=== PATIENT | female | born 1990 | race Caucasian/White ===

== ENCOUNTER 2016-07-24 22:05 | Emergency (ER) | payer OTHER ==
[~2016-07-24] VITALS: Ht 157.5 cm; Wt 84.4 kg
[~2016-07-24 22:05] MED LIST: HYDR-2678 PO; PREN-6 PO
[2016-07-24 22:22] VITALS: BP 150/102
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
[2016-07-24] MEDS ORDERED: HYDROcodone/APAP 5/325MG 1 TAB TABLET PO ONE (22:30)
[2016-07-24] MEDS ORDERED: HYDR-2666 PO (23:24)
[2016-07-24] MEDS ORDERED: NAPR500T PO (23:24)
--- NOTE | 2016-07-25 07:29 | RAD ---
Portable right knee, 3 views, 07/24/2016: History: Fall, pain No acute fracture or dislocation is identified. There is a suggestion of a moderate-sized joint effusion. IMPRESSION: 1. Probable joint effusion. 2. No acute bony abnormality is detected.
== END 2016-07-24 23:38 | disposition home or self-care (01) ==
LOC: ER 22:05
DX: S83.421A Sprain of lateral collateral ligament of right knee, initial encounter (principal); F17.200 Nicotine dependence, unspecified, uncomplicated; Z86.14 Personal history of Methicillin resistant Staphylococcus aureus infection; X58.XXXA Exposure to other specified factors, initial encounter; Y93.02 Activity, running; Y92.410 Unspecified street and highway as the place of occurrence of the external cause; Y99.8 Other external cause status
CPT/HCPCS: 29505; 73562; 99284-25

== ENCOUNTER 2016-11-16 17:29 | Emergency (ER) | payer SELFPAY ==
[~2016-11-16] VITALS: Ht 157.5 cm; Wt 69.4 kg
[~2016-11-16 17:29] MED LIST changes: +HYDR-2758 PO; +NAPR500T PO; +PRED20TA PO; +PROVENTIL HFA6.7 GM IH; +SULF1TAB24 PO
[2016-11-16 17:38] VITALS: BP 147/83
[2016-11-16] MEDS ORDERED: IPRATRPIUM/ALBUTEROL 0.5/2.5MG 3 ML NEBU. NEB ONE (17:45)
[2016-11-16] MEDS ORDERED: PRED20TA PO (18:37)
[2016-11-16] MEDS ORDERED: AZIT250T PO (18:37)
[2016-11-16] MEDS ORDERED: PROAIR HFA8.5 GM INH (18:37)
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
== END 2016-11-16 18:43 | disposition home or self-care (01) ==
LOC: ER 17:29
DX: J40 Bronchitis, not specified as acute or chronic (principal)
CPT/HCPCS: 94250; 94640; 99283; J7620

== ENCOUNTER 2016-12-02 04:58 | Emergency (ER) | payer SELFPAY ==
[~2016-12-02] VITALS: Ht 162.6 cm; Wt 69.4 kg
[~2016-12-02 04:58] MED LIST changes: +AZIT250T PO; +PROAIR HFA8.5 GM INH
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
[2016-12-02 05:56] LABS: BASO # 0.1 x10^3/uL (0.0-0.2); BASO % 1 % (0-3); EOS % 0 % (0-3); HEMATOCRIT 38.8 % (36.0-47.0); HEMOGLOBIN 13.1 g/dL (12.0-15.5); LYMPH # 2.1 x10^3/uL (1.0-4.8); LYMPH % 22 % (24-48); MEAN CORPUSCULAR HEMOGLOBIN 28 pg (25-35); MEAN CORPUSCULAR HGB CONC 34 g/dL (31-37); MEAN CORPUSCULAR VOLUME 81 fL (79-100); MONO % 6 % (0-9); NEUT % 71 % (31-73); PLATELET COUNT 274 x10^3/uL (140-400); RED BLOOD COUNT 4.77 x10^6/uL (3.50-5.40); RED CELL DISTRIBUTION WIDTH 16.1 % (11.5-14.5); WHITE BLOOD COUNT 9.4 x10^3/uL (4.0-11.0)
[2016-12-02 06:00] LABS: BILIRUBIN,URINE NEGATIVE (NEG); GLUCOSE,URINE NEGATIVE (NEG); NITRITE,URINE NEGATIVE (NEG); PH,URINE 5.5; PROTEIN,URINE NEGATIVE (NEG-TRACE); UROBILINOGEN,URINE 0.2 mg/dL (0.2 mg/dL)
[2016-12-02] MEDS ORDERED: IV NORMAL SALINE 1000ML BAG 1,000 ML IV ONE (06:00)
[2016-12-02 06:15] LABS: BACTERIA,URINE 0 /HPF (0-FEW); RBC,URINE 0 /HPF (0-2); SQUAMOUS EPITHELIAL CELL,UR FEW /LPF; WBC,URINE 0 /HPF (0-4)
[2016-12-02] MEDS ORDERED: CONTRAST GIVEN MC PRN (06:15)
[2016-12-02 06:28] LABS: CALCIUM 8.2 mg/dL (8.5-10.1); POTASSIUM 3.8 mmol/L (3.5-5.1)
[2016-12-02 06:29] LABS: ALBUMIN 3.6 g/dL (3.4-5.0); TOTAL BILIRUBIN 0.3 mg/dL (0.2-1.0); TOTAL PROTEIN 7.3 g/dL (6.4-8.2)
[2016-12-02] MEDS ORDERED: IOHEXOL 300 MG/ML 75 ML VIAL IV ONE (06:30)
--- NOTE | 2016-12-02 07:25 | RAD ---
CT of the abdomen and pelvis with contrast, 12/02/2016: History: Left-sided pain Multidetector CT imaging was performed following an IV bolus injection of iodinated contrast material. No oral contrast material was administered for this study. There is mild streaky atelectasis in the lung bases. No hepatic abnormality is seen. The gallbladder is unremarkable. No pancreatic abnormality is detected. The spleen is of normal size. The kidneys show no evidence of obstruction or mass. There is an 18 mm cyst in the right ovary. No abdominal or pelvic adenopathy is seen. The bowel loops are not dilated. A portion of the appendix is visualized and it shows no abnormality. No free air or significant free fluid is evident in the abdomen or pelvis. IMPRESSION: No acute abdominal or pelvic abnormality is detected. PQRS Compliance Statement: One or more of the following individualized dose reduction techniques were utilized for this examination: 1. Automated exposure control 2. Adjustment of the mA and/or kV according to patient size 3. Use of iterative reconstruction technique
[2016-12-02 07:52] VITALS: BP 104/48
== END 2016-12-02 09:08 | disposition home or self-care (01) ==
LOC: ER 04:58
DX: S05.12XA Contusion of eyeball and orbital tissues, left eye, initial encounter (principal); S00.11XA Contusion of right eyelid and periocular area, initial encounter; S10.91XA Abrasion of unspecified part of neck, initial encounter; S09.90XA Unspecified injury of head, initial encounter; R10.31 Right lower quadrant pain; Y04.0XXA Assault by unarmed brawl or fight, initial encounter; Y93.89 Activity, other specified; Y92.89 Other specified places as the place of occurrence of the external cause; Y99.8 Other external cause status
CPT/HCPCS: 36415; 74177; 80053; 81001; 81025; 83690; 85025; 96360; 99285; J7030; Q9967

== ENCOUNTER 2017-04-06 20:02 | Emergency (ER) | payer SELFPAY ==
[2017-04-06] MEDS: IPRATRPIUM/ALBUTEROL 0.5/2.5MG 3 ML NEBU. NEB ×2 (20:45)
[2017-04-06] MEDS: IOHEXOL 300 MG/ML 100ML VIAL. IV ×2 (20:45)
[2017-04-06 20:49] LABS: ADD MAN DIFF? NO
[2017-04-06 20:52] LABS: URINE HCG POC HCG NEGATIVE (Negative)
[2017-04-06 20:52] LABS: BASO # 0.1 x10^3/uL (0.0-0.2); BASO % 1 % (0-3); EOS # 0.2 x10^3/uL (0.0-0.7); EOS % 2 % (0-3); HEMATOCRIT 37.9 % (36.0-47.0); HEMOGLOBIN 13.1 g/dL (12.0-15.5); LYMPH # 2.5 x10^3/uL (1.0-4.8); LYMPH % 30 % (24-48); MEAN CORPUSCULAR HEMOGLOBIN 29 pg (25-35); MEAN CORPUSCULAR HGB CONC 35 g/dL (31-37); MEAN CORPUSCULAR VOLUME 83 fL (79-100); MONO # 0.8 x10^3/uL (0.0-1.1); MONO % 9 % (0-9); NEUT # 4.8 x10^3uL (1.8-7.7); NEUT % 58 % (31-73); PLATELET COUNT 264 x10^3/uL (140-400); RED BLOOD COUNT 4.56 x10^6/uL (3.50-5.40); RED CELL DISTRIBUTION WIDTH 15.3 % (11.5-14.5); WHITE BLOOD COUNT 8.3 x10^3/uL (4.0-11.0)
[2017-04-06] MEDS ORDERED: CONTRAST GIVEN MC ×2 (21:00)
[2017-04-06 21:03] LABS: ANION GAP 10 (6-14); BLOOD UREA NITROGEN 9 mg/dL (7-20); BUN/CREATININE RATIO 10 (6-20); CALCIUM 8.3 mg/dL (8.5-10.1); CARBON DIOXIDE 25 mmol/L (21-32); CHLORIDE 105 mmol/L (98-107); CREATININE 0.9 mg/dL (0.6-1.0); GFR 75.1; GLUCOSE 103 mg/dL (70-99); POTASSIUM 3.9 mmol/L (3.5-5.1); SODIUM 140 mmol/L (136-145)
[2017-04-06] MEDS: MORPHINE SULFATE 10 MG/ML VIAL. IV ×2 (21:05)
[2017-04-06 21:11] LABS: ALBUMIN 3.3 g/dL (3.4-5.0); ALBUMIN/GLOBULIN RATIO 0.8 (1.0-1.7); ALK PHOS 67 U/L (46-116); ALT (SGPT) 19 U/L (14-59); AST (SGOT) 12 U/L (15-37); TOTAL BILIRUBIN 0.7 mg/dL (0.2-1.0); TOTAL PROTEIN 7.2 g/dL (6.4-8.2)
== END 2017-04-06 22:54 | disposition home or self-care (01) ==
LOC: ER 20:02
DX: S16.1XXA Strain of muscle, fascia and tendon at neck level, initial encounter (principal); J06.9 Acute upper respiratory infection, unspecified; R06.2 Wheezing; F17.200 Nicotine dependence, unspecified, uncomplicated; V89.2XXA Person injured in unspecified motor-vehicle accident, traffic, initial encounter; W22.12XA Striking against or struck by front passenger side automobile airbag, initial encounter; Y93.89 Activity, other specified; Y92.89 Other specified places as the place of occurrence of the external cause; Y99.8 Other external cause status
CPT/HCPCS: 36415; 70450; 71260; 72125; 80053; 81025; 85025; 94640; 96374; 99285-25; J2270; J7620; Q9967

== ENCOUNTER 2018-08-12 21:03 | Emergency (ER) | payer SELFPAY ==
[~2018-08-12] VITALS: Ht 157.5 cm; Wt 72.6 kg
[~2018-08-12 21:03] MED LIST changes: +ALBU2.5V8 IH; +ALBU2.5V8 INH; -HYDR-2758 PO; +HYDR-2761 PO; +HYDR-3164 PO; +LEVO750T31 PO; +NAPR-683 PO; -NAPR500T PO; -PROAIR HFA8.5 GM INH; -PROVENTIL HFA6.7 GM IH
[2018-08-12 21:28] VITALS: BP 158/92
[2018-08-12] MEDS ORDERED: HYDR-3164 PO (21:43)
--- NOTE | 2018-08-12 22:55 | PHYS DOC ---
Past Medical History Past Medical History: MRSA, Other Additional Past Medical Histor: heart murmur Past Surgical History: Other Additional Past Surgical Histo: I&D R rib area for MRSA Alcohol Use: None Drug Use: None Adult General Chief Complaint Chief Complaint: KNEE INJURY HPI HPI Patient is a 27 year old pain is upper right knee radiates to the mid thigh area no numbness or tingling pain is severe has not yet tried anything for relief. Sharp Current Medications Current Medications Current Medications Medications (Trade) Dose Ordered Sig/Arabella Start Time Stop Time Status Last Admin Dose Admin Acetaminophen/ Hydrocodone Bitart (Lortab 5/325) 2 tab 1X ONCE 08/12/18 23:00 08/12/18 23:01 08/12/18 22:41 2 TAB Allergies Allergies Allergies Coded Allergies Type Severity Reaction Last Updated Verified No Known Drug Allergies 04/04/14 No Physical Exam Physical Exam Constitutional: Well developed, well nourished, no acute distress, non-toxic appearance. [] HENT: Normocephalic, atraumatic, bilateral external ears normal, oropharynx moist, no oral exudates, nose normal. [] Eyes: PERRLA, EOMI, conjunctiva normal, no discharge. [] Neck: Normal range of motion, no tenderness, supple, no stridor. [] Cr Pulmonary: Normal respiratory effort no increased work of breathing no obvious chest wall trauma Lungs & Thorax: Skin: Warm, dry, no erythema, no rash. [] Back: No tenderness, no CVA tenderness. [] Extremities: There is tenderness to palpation of the right knee there is possible small effusion no erythema there is really no significant hip tenderness the tenderness is isolated to the superior aspect of the right knee Distal sensation and function is intact Neurologic: Alert and oriented X 3, normal motor function, normal sensory function, no focal deficits noted. [] Psychologic: Affect normal, judgement normal, mood normal. [] Current Patient Data Vital Signs Vital Signs Date Time Temp Pulse Resp B/P (MAP) Pulse Ox O2 Delivery O2 Flow Rate FiO2 08/12/18 22:41 16 97 Room Air 08/12/18 21:28 99.3 98 158/92 (114) 99.3 EKG EKG [] Radiology/Procedures Radiology/Procedures [] Impressions: The x-ray negative Of the right knee: Suspect internal derangement or knee sprain patient was given short course of pain control clinic information was provided. Course & Med Decision Making Course & Med Decision Making Pertinent Labs and Imaging studies reviewed. (See chart for details) [] Dragon Disclaimer Dragon Disclaimer This electronic medical record was generated, in whole or in part, using a voice recognition dictation system. Departure Departure Impression: Primary Impression: Knee injury Disposition: HOME, SELF-CARE Condition: STABLE Patient Instructions: Knee Sprain Scripts Hydrocodone/Apap 5-325 (NORCO 5-325 TABLET) 1 Each Tablet 1-2 EACH PO PRN Q6HRS PRN for PAIN, #15 as needed for pain Prov: RAYMON NUNES MD 08/12/18 RAYMON NUNES MD Aug 12, 2018 22:55
[2018-08-12] MEDS ORDERED: HYDROcodone/APAP 5/325MG 1 TAB TABLET PO ONE (23:00)
--- NOTE | 2018-08-13 05:32 | RAD ---
KNEE RIGHT 3V 08/12/2018 9:36 PM INDICATION: Trauma COMPARISON: None available. TECHNIQUE: 3 views the right knee are provided. FINDINGS: There is no acute fracture or dislocation. Bone mineralization is within normal limits. Joint spaces are maintained. Regional soft tissues are within normal limits. There is no soft tissue gas or osseous erosion. Small knee joint effusion. IMPRESSION: No acute fracture or dislocation. Small knee joint effusion. Electronically signed by: Marla Miller MD (08/13/2018 5:29 AM) [id number]
== END 2018-08-12 22:42 | disposition home or self-care (01) ==
LOC: ER 21:03
DX: S89.81XA Other specified injuries of right lower leg, initial encounter (principal); W13.8XXA Fall from, out of or through other building or structure, initial encounter; Y93.89 Activity, other specified; Y92.89 Other specified places as the place of occurrence of the external cause; Y99.8 Other external cause status
CPT/HCPCS: 73562; 99284

== ENCOUNTER 2018-11-23 11:57 | Emergency (ER) | payer SELFPAY ==
[~2018-11-23] VITALS: Ht 154.9 cm; Wt 81.2 kg
[~2018-11-23 11:57] MED LIST changes: -ALBU2.5V8 IH; +PROVENTIL HFA6.7 GM IH
[2018-11-23] MEDS ORDERED: predniSONE 20 MG TABLET PO ONE (12:45)
[2018-11-23] MEDS ORDERED: IPRATRPIUM/ALBUTEROL 0.5/2.5MG 3 ML NEBU. NEB ONE ×2 (12:45→13:15)
[2018-11-23 12:58] LABS: BILIRUBIN,URINE SMALL (NEG); CLARITY,URINE CLEAR; COLOR,URINE AMBER; NITRITE,URINE NEGATIVE (NEG); PH,URINE 5.5; PROTEIN,URINE NEGATIVE (NEG-TRACE)
--- NOTE | 2018-11-23 13:03 | RAD ---
EXAM: Chest, single view. HISTORY: Fever. COMPARISON: CT dated 04/06/2017. FINDINGS: A frontal view of the chest is obtained. There is right middle lobe and left lower lobe opacity possibly due to infiltrate or scarring. There is no pleural effusion or pneumothorax. The heart is normal in size. IMPRESSION: Suspected right middle lobe and left infrahilar infiltrate or scarring. Electronically signed by: Beena Moreno MD (11/23/2018 1:00 PM) [place] [id number]
[2018-11-23 13:07] LABS: BASO % 1 % (0-3); EOS # 0.1 x10^3/uL (0.0-0.7); EOS % 2 % (0-3); HEMATOCRIT 37.9 % (36.0-47.0); HEMOGLOBIN 13.2 g/dL (12.0-15.5); LYMPH # 1.3 x10^3/uL (1.0-4.8); LYMPH % 16 % (24-48); MEAN CORPUSCULAR HEMOGLOBIN 28 pg (25-35); MEAN CORPUSCULAR HGB CONC 35 g/dL (31-37); MEAN CORPUSCULAR VOLUME 80 fL (79-100); MONO # 0.8 x10^3/uL (0.0-1.1); MONO % 10 % (0-9); NEUT # 5.8 x10^3/uL (1.8-7.7); NEUT % 72 % (31-73); PLATELET COUNT 265 x10^3/uL (140-400); RED BLOOD COUNT 4.72 x10^6/uL (3.50-5.40); RED CELL DISTRIBUTION WIDTH 15.2 % (11.5-14.5); WHITE BLOOD COUNT 8.1 x10^3/uL (4.0-11.0)
[2018-11-23 13:13] LABS: CREATININE 1.1 mg/dL (0.6-1.0); GFR 59.1; POTASSIUM 3.9 mmol/L (3.5-5.1)
[2018-11-23 13:19] LABS: SQUAMOUS EPITHELIAL CELL,UR MANY /LPF
[2018-11-23 13:19] LABS: ALBUMIN 3.6 g/dL (3.4-5.0); DIRECT BILIRUBIN 0.1 mg/dL (0.0-0.2); TOTAL BILIRUBIN 0.6 mg/dL (0.2-1.0); TOTAL PROTEIN 7.6 g/dL (6.4-8.2)
[2018-11-23 13:20] LABS: BACTERIA,URINE 0 /HPF (0-FEW); RBC,URINE 0 /HPF (0-2)
[2018-11-23] MEDS ORDERED: AZITHRMYCN 500MG IVPB FOR OMNI 250 ML IV ONE (13:30)
[2018-11-23] MEDS ORDERED: cefTRIAXone IV Push 1 GM VIAL. IVP ONE (13:30)
[2018-11-23] MEDS ORDERED: IV NORMAL SALINE 1000ML BAG 1,000 ML IV SCH (13:40)
[2018-11-23] MEDS ORDERED: ONDANSETRON PF 4 MG/2 ML VIAL. IV PRN (13:45)
[2018-11-23] MEDS: MORPHINE SULFATE 2 MG/ML VIAL. IV PRN ×2 (13:51→17:22)
--- NOTE | 2018-11-23 13:58 | PHYS DOC ---
Past Medical History Past Medical History: MRSA, Other Additional Past Medical Histor: heart murmur Past Surgical History: Other Additional Past Surgical Histo: I&D R rib area for MRSA Alcohol Use: None Drug Use: None Adult General Chief Complaint Chief Complaint: SHORTNESS OF BREATH HPI HPI 27-year-old female presenting the emergency pertinent today with 3 days for shortness of breath with cough and fever. She also has left ear pain with drainage. The cough is a productive cough that has yellow sputum production. She has had a fever at home of approximately 104F. She took acetaminophen which brought her fever down. She denies any history of pulmonary disease. Review of systems is negative for abdominal pain vomiting. Positive for sharp chest pain is worse when she coughs. Positive for fevers. Positive for shortness of breath. All other review of systems is negative. ED course: 19-year-old female presenting with cough and congestion found to have bilateral pneumonia. She was given IV antibiotics and will be admitted to the hospital for treatment of bilateral pneumonia. Current Medications Current Medications Current Medications Medications (Trade) Dose Ordered Sig/Arabella Start Time Stop Time Status Last Admin Dose Admin Albuterol/ Ipratropium (Duoneb) 3 ml 1X ONCE 11/23/18 13:15 11/23/18 13:16 DC 11/23/18 13:08 3 ML Azithromycin 250 ml @ 250 mls/hr 1X ONCE 11/23/18 13:30 11/23/18 14:29 DC 11/23/18 13:35 250 MLS/HR Ceftriaxone Sodium (Rocephin) 1 gm 1X ONCE 11/23/18 13:30 11/23/18 13:31 DC 11/23/18 13:35 1 GM Morphine Sulfate (Morphine Sulfate) 2 mg PRN Q2HR PRN 11/23/18 13:45 11/24/18 13:44 11/23/18 17:22 2 MG Ondansetron HCl (Zofran) 4 mg PRN Q8HRS PRN 11/23/18 13:45 11/24/18 13:44 Prednisone (Prednisone) 50 mg 1X ONCE 11/23/18 12:45 11/23/18 12:46 DC 11/23/18 13:06 50 MG Sodium Chloride 1,000 ml @ 100 mls/hr Q10H 11/23/18 13:40 11/24/18 13:39 11/23/18 13:50 100 MLS/HR Allergies Allergies Allergies Coded Allergies Type Severity Reaction Last Updated Verified No Known Drug Allergies 04/04/14 No Physical Exam Physical Exam Constitutional: Well developed, well nourished, no acute distress, non-toxic appearance. [] HENT: Normocephalic, atraumatic, bilateral external ears normal, oropharynx moist, no oral exudates, nose normal. [] Eyes: PERRLA, EOMI, conjunctiva normal, no discharge. Neck: Normal range of motion, no tenderness, supple, no stridor. [] Cardiovascular:Heart rate regular rhythm, no murmur [] Lungs & Thorax: wheezing bilaterally. with prolonged expiratory Abdomen: Bowel sounds normal, soft, no tenderness, no masses, no pulsatile masses. [] Skin: Warm, dry, no erythema, no rash. [] Back: No tenderness, no CVA tenderness. [] Extremities: No tenderness, no cyanosis, no clubbing, ROM intact, no edema. [] Neurologic: Alert and oriented X 3, normal motor function, normal sensory function, no focal deficits noted. [] Psychologic: Affect normal, judgement normal, mood normal. [] Current Patient Data Vital Signs Vital Signs Date Time Temp Pulse Resp B/P (MAP) Pulse Ox O2 Delivery O2 Flow Rate FiO2 11/23/18 14:38 79 18 112/59 (76) 94 Room Air 11/23/18 12:28 98.6 98.6 Lab Values Laboratory Tests Test 11/23/18 12:30 11/23/18 12:39 11/23/18 12:46 Urine Collection Type Unknown Urine Color Tita Urine Clarity Clear Urine pH 5.5 Urine Specific [place] >=1.030 Urine Protein Negative mg/dL (NEG-TRACE) Urine Glucose (UA) Negative mg/dL (NEG) Urine Ketones (Stick) Trace mg/dL (NEG) Urine Blood Negative (NEG) Urine Nitrite Negative (NEG) Urine Bilirubin Small (NEG) Urine Urobilinogen Dipstick 1.0 mg/dL (0.2 mg/dL) Urine Leukocyte Esterase Negative (NEG) Urine RBC 0 /HPF (0-2) Urine WBC 1-4 /HPF (0-4) Urine Squamous Epithelial Cells Many /LPF Urine Bacteria 0 /HPF (0-FEW) Urine Mucus Slight /LPF Urine Opiates Screen Pos (NEG) Urine Methadone Screen Neg (NEG) Urine Barbiturates Neg (NEG) Urine Phencyclidine Screen Neg (NEG) Urine Amphetamine/Methamphetamine Neg (NEG) Urine Benzodiazepines Screen Pos (NEG) Urine Cocaine Screen Pos (NEG) Urine Cannabinoids Screen Neg (NEG) Urine Ethyl Alcohol Neg (NEG) POC Urine HCG, Qualitative Hcg negative (Negative) White Blood Count 8.1 x10^3/uL (4.0-11.0) Red Blood Count 4.72 x10^6/uL (3.50-5.40) Hemoglobin 13.2 g/dL (12.0-15.5) Hematocrit 37.9 % (36.0-47.0) Mean Corpuscular Volume 80 fL (79-100) Mean Corpuscular Hemoglobin 28 pg (25-35) Mean Corpuscular Hemoglobin Concent 35 g/dL (31-37) Red Cell Distribution Width 15.2 % (11.5-14.5) H Platelet Count 265 x10^3/uL (140-400) Neutrophils (%) (Auto) 72 % (31-73) Lymphocytes (%) (Auto) 16 % (24-48) L Monocytes (%) (Auto) 10 % (0-9) H Eosinophils (%) (Auto) 2 % (0-3) Basophils (%) (Auto) 1 % (0-3) Neutrophils # (Auto) 5.8 x10^3/uL (1.8-7.7) Lymphocytes # (Auto) 1.3 x10^3/uL (1.0-4.8) Monocytes # (Auto) 0.8 x10^3/uL (0.0-1.1) Eosinophils # (Auto) 0.1 x10^3/uL (0.0-0.7) Basophils # (Auto) 0.0 x10^3/uL (0.0-0.2) D-Dimer (Denise) 0.31 ug/mlFEU (0.00-0.50) Sodium Level 139 mmol/L (136-145) Potassium Level 3.9 mmol/L (3.5-5.1) Chloride Level 103 mmol/L (98-107) Carbon Dioxide Level 26 mmol/L (21-32) Anion Gap 10 (6-14) Blood Urea Nitrogen 7 mg/dL (7-20) Creatinine 1.1 mg/dL (0.6-1.0) H Estimated GFR (Cockcroft-Gault) 59.1 Glucose Level 93 mg/dL (70-99) Calcium Level 9.0 mg/dL (8.5-10.1) Total Bilirubin 0.6 mg/dL (0.2-1.0) Direct Bilirubin 0.1 mg/dL (0.0-0.2) Aspartate Amino Transferase (AST) 15 U/L (15-37) Alanine Aminotransferase (ALT) 17 U/L (14-59) Alkaline Phosphatase 66 U/L (46-116) Troponin I Quantitative < 0.017 ng/mL (0.000-0.055) Total Protein 7.6 g/dL (6.4-8.2) Albumin 3.6 g/dL (3.4-5.0) Lipase 72 U/L (73-393) L Laboratory Tests 11/23/18 12:46 Laboratory Tests 11/23/18 12:46 EKG EKG []EKG shows sinus rhythm with a regular rate. ST segments congruent. Not suggestive of ACS. Radiology/Procedures Radiology/Procedures [] Course & Med Decision Making Course & Med Decision Making Pertinent Labs and Imaging studies reviewed. (See chart for details) [] Dragon Disclaimer Dragon Disclaimer This electronic medical record was generated, in whole or in part, using a voice recognition dictation system. Departure Departure Impression: Primary Impression: Bilateral pneumonia Disposition: ADMITTED INPATIENT Admitting Physician: Karla Perez Referrals: KARLA PEREZ MD (PCP) DEMARIO CARRILLO MD Nov 23, 2018 13:58
--- NOTE | 2018-11-23 14:46 | EKG ---
[facility] [address] [place] [address] Test Date: 2018-11-23 Test Time: 12:29:31 Pat Name: PABLO MALIN Department: Room: Gender: F Crm Coordinator: : 1990 Requested By: DEMARIO CARRILLO Order Number: [id number] Reading MD: David Lowe MD Measurements Intervals [place] Rate: 88 P: 51 PA: 82 QRS: 48 QRSD: 114 T: 26 QT: 366 QTc: 446 Interpretive Statements SINUS RHYTHM NON-SPECIFIC ST/T CHANGES Electronically Signed On 12-04-2018 9:41:11 CDT by David Lowe MD
[2018-11-23 15:17] LABS: BARBITURATES NEG (NEG); BENZODIAZEPINES POS (NEG); CANNABINOIDS NEG (NEG); COCAINE POS (NEG); METHADONE NEG (NEG); OPIATES POS (NEG); PHENCYCLIDINE NEG (NEG)
[2018-11-23 15:25] LABS: AMPHETAMINE/METHAMPHETAMINE NEG (NEG)
[2018-11-23 17:35] VITALS: BP 147/71
--- NOTE | 2018-11-23 18:30 | NUR ---
Patient left [facility] at 1745 before admission was completed . MD Chris notified.
== END 2018-11-23 17:28 | disposition left against medical advice (07) ==
LOC: ER 11:57 → UNDOADMIN 14:52 → 5 SOUTH 14:52 → UNDODISIN 18:34
DX: J18.9 Pneumonia, unspecified organism (principal); Z86.14 Personal history of Methicillin resistant Staphylococcus aureus infection
CPT/HCPCS: 36415; 71045; 80048; 80076; 80307; 81001; 81025; 83690; 84484; 85025; 85379; 93005; 94640; 96365; 96366; 96375; 99285; J0456; J0696; J2270; J7030; J7512; J7620; G0378

== ENCOUNTER 2020-04-27 19:55 | Emergency (ER) | payer OTHER ==
[~2020-04-27] VITALS: Ht 154.9 cm; Wt 63.6 kg
[2020-04-27 19:58] VITALS: BP 167/71
[2020-04-27 21:14] LABS: BASO # 0.1 x10^3/uL (0.0-0.2); BASO % 1 % (0-3); EOS # 0.2 x10^3/uL (0.0-0.7); EOS % 2 % (0-3); HEMATOCRIT 34.2 % (36.0-47.0); HEMOGLOBIN 11.9 g/dL (12.0-15.5); LYMPH # 2.7 x10^3/uL (1.0-4.8); LYMPH % 23 % (24-48); MEAN CORPUSCULAR HEMOGLOBIN 29 pg (25-35); MEAN CORPUSCULAR HGB CONC 35 g/dL (31-37); MEAN CORPUSCULAR VOLUME 83 fL (79-100); MONO % 8 % (0-9); NEUT % 67 % (31-73); PLATELET COUNT 285 x10^3/uL (140-400); RED BLOOD COUNT 4.11 x10^6/uL (3.50-5.40); RED CELL DISTRIBUTION WIDTH 14.9 % (11.5-14.5); WHITE BLOOD COUNT 11.9 x10^3/uL (4.0-11.0)
[2020-04-27 21:16] LABS: BILIRUBIN,URINE SMALL (NEG); CLARITY,URINE CLEAR; COLOR,URINE AMBER; NITRITE,URINE NEGATIVE (NEG); PH,URINE 5.5 (<5.0-8.0); PROTEIN,URINE NEGATIVE (NEG-TRACE)
[2020-04-27 21:21] LABS: BARBITURATES NEG (NEG); BENZODIAZEPINES NEG (NEG); CANNABINOIDS NEG (NEG); COCAINE POS (NEG); METHADONE NEG (NEG); OPIATES POS (NEG); PHENCYCLIDINE NEG (NEG)
[2020-04-27 21:23] LABS: AMPHETAMINE/METHAMPHETAMINE POS (NEG)
[2020-04-27 21:24] LABS: CALCIUM 8.9 mg/dL (8.5-10.1); CREATININE 0.6 mg/dL (0.6-1.0); GFR 117.4; POTASSIUM 3.2 mmol/L (3.5-5.1)
[2020-04-27 21:27] LABS: ACETAMIN < 2 mcg/ml (10-30); BACTERIA,URINE MOD /HPF (0-FEW); ETHANOL < 10 mg/dL (0-10); RBC,URINE OCC /HPF (0-2); SALIC < 2.8 mg/dL (2.8-20.0)
[2020-04-27 21:30] LABS: ALBUMIN 3.2 g/dL (3.4-5.0); ALBUMIN/GLOBULIN RATIO 0.9 (1.0-1.7); MAGNESIUM 2.1 mg/dL (1.8-2.4); TOTAL BILIRUBIN 0.4 mg/dL (0.2-1.0); TOTAL PROTEIN 6.8 g/dL (6.4-8.2)
--- NOTE | 2020-04-27 22:24 | EKG ---
[facility] [address] [place] [address] Test Date: 2020-04-27 Test Time: 21:39:29 Pat Name: PABLO MALIN Department: Room: Gender: F Senior Quality Assurance Specialist: : 1990 Requested By: ALFIE REED Order Number: [id number] Reading MD: Measurements Intervals [place] Rate: 85 P: 54 GA: 114 QRS: 55 QRSD: 88 T: 47 QT: 356 QTc: 424 Interpretive Statements SINUS RHYTHM NORMAL ECG RI6.02 No previous ECG available for comparison
--- NOTE | 2020-04-28 01:52 | PHYS DOC ---
Past Medical History Past Medical History: Depression, MRSA, Other Additional Past Medical Histor: heart murmur Past Surgical History: Knee Replacement, Other Additional Past Surgical Histo: I&D R rib area for MRSA, left knee Smoking Status: Current Every Day Smoker Alcohol Use: Occasionally Drug Use: None Social History Narrative: "anything i can get my hands on" per pt recently Adult General Chief Complaint Chief Complaint: SUICDAL IDEATION HPI HPI Patient is a 29 year old presenting the emergency department for sepsis. Re questing rehab or detox. Patient states that she has been using multiple substances in many years and is coming because she is short of breath mostly off. Patient currently denies any chest pain, fever, chills, nausea or vomiting. Patient states he has last used this morning Review of Systems Review of Systems Constitutional: Denies fever or chills [] Eyes: Denies change in visual acuity, redness, or eye pain [] HENT: Denies nasal congestion or sore throat [] Respiratory: Denies cough or shortness of breath [] Cardiovascular: No additional information not addressed in HPI [] GI: Denies abdominal pain, nausea, vomiting, bloody stools or diarrhea [] : Denies dysuria or hematuria [] Musculoskeletal: Denies back pain or joint pain [] Integument: Denies rash or skin lesions [] Neurologic: Denies headache, focal weakness or sensory changes [] Endocrine: Denies polyuria or polydipsia [] All other systems were reviewed and found to be within normal limits, except as documented in this note. Current Medications Current Medications Current Medications Medications (Trade) Dose Ordered Sig/Arabella Start Time Stop Time Status Last Admin Dose Admin Lorazepam (Ativan) 1 mg 1X ONCE 04/27/20 23:00 04/27/20 23:02 DC 04/27/20 23:03 1 MG Allergies Allergies Allergies Coded Allergies Type Severity Reaction Last Updated Verified No Known Drug Allergies 04/04/14 No Physical Exam Physical Exam Constitutional: Well developed, well nourished, no acute distress, non-toxic appearance. [] HENT: Normocephalic, atraumatic, bilateral external ears normal, oropharynx moist, no oral exudates, nose normal. [] Eyes: PERRLA, EOMI, conjunctiva normal, no discharge. [] Neck: Normal range of motion, no tenderness, supple, no stridor. [] Cardiovascular:Heart rate regular rhythm, no murmur [] Lungs & Thorax: Bilateral breath sounds clear to auscultation [] Abdomen: Bowel sounds normal, soft, no tenderness, no masses, no pulsatile masses. [] Skin: Warm, dry, no erythema, no rash. [] Back: No tenderness, no CVA tenderness. [] Extremities: No tenderness, no cyanosis, no clubbing, ROM intact, no edema. [] Neurologic: Alert and oriented X 3, normal motor function, normal sensory function, no focal deficits noted. [] Psychologic: Affect normal, judgement normal, mood normal. [] Current Patient Data Vital Signs Vital Signs Date Time Temp Pulse Resp B/P (MAP) Pulse Ox O2 Delivery O2 Flow Rate FiO2 04/27/20 19:58 98.1 111 18 167/71 (103) 98 Room Air 98.1 Lab Values Laboratory Tests Test 04/27/20 20:20 04/27/20 20:27 White Blood Count 11.9 x10^3/uL (4.0-11.0) H Red Blood Count 4.11 x10^6/uL (3.50-5.40) Hemoglobin 11.9 g/dL (12.0-15.5) L Hematocrit 34.2 % (36.0-47.0) L Mean Corpuscular Volume 83 fL (79-100) Mean Corpuscular Hemoglobin 29 pg (25-35) Mean Corpuscular Hemoglobin Concent 35 g/dL (31-37) Red Cell Distribution Width 14.9 % (11.5-14.5) H Platelet Count 285 x10^3/uL (140-400) Neutrophils (%) (Auto) 67 % (31-73) Lymphocytes (%) (Auto) 23 % (24-48) L Monocytes (%) (Auto) 8 % (0-9) Eosinophils (%) (Auto) 2 % (0-3) Basophils (%) (Auto) 1 % (0-3) Neutrophils # (Auto) 8.0 x10^3/uL (1.8-7.7) H Lymphocytes # (Auto) 2.7 x10^3/uL (1.0-4.8) Monocytes # (Auto) 1.0 x10^3/uL (0.0-1.1) Eosinophils # (Auto) 0.2 x10^3/uL (0.0-0.7) Basophils # (Auto) 0.1 x10^3/uL (0.0-0.2) Urine Collection Type Unknown Urine Color Tita Urine Clarity Clear Urine pH 5.5 (<5.0-8.0) Urine Specific [place] >=1.030 (1.000-1.030) Urine Protein Negative mg/dL (NEG-TRACE) Urine Glucose (UA) Negative mg/dL (NEG) Urine Ketones (Stick) Trace mg/dL (NEG) Urine Blood Negative (NEG) Urine Nitrite Negative (NEG) Urine Bilirubin Small (NEG) Urine Urobilinogen Dipstick 1.0 mg/dL (0.2 mg/dL) Urine Leukocyte Esterase Small (NEG) Urine RBC Occ /HPF (0-2) Urine WBC 5-10 /HPF (0-4) Urine Squamous Epithelial Cells Mod /LPF Urine Bacteria Mod /HPF (0-FEW) Sodium Level 137 mmol/L (136-145) Potassium Level 3.2 mmol/L (3.5-5.1) L Chloride Level 104 mmol/L (98-107) Carbon Dioxide Level 23 mmol/L (21-32) Anion Gap 10 (6-14) Blood Urea Nitrogen 10 mg/dL (7-20) Creatinine 0.6 mg/dL (0.6-1.0) Estimated GFR (Cockcroft-Gault) 117.4 BUN/Creatinine Ratio 17 (6-20) Glucose Level 66 mg/dL (70-99) L Calcium Level 8.9 mg/dL (8.5-10.1) Magnesium Level 2.1 mg/dL (1.8-2.4) Total Bilirubin 0.4 mg/dL (0.2-1.0) Aspartate Amino Transferase (AST) 15 U/L (15-37) Alanine Aminotransferase (ALT) 20 U/L (14-59) Alkaline Phosphatase 64 U/L (46-116) Creatine Kinase 143 U/L (26-192) Creatine Kinase MB (Mass) 1.6 ng/mL (0.0-3.6) Creatine Kinase MB Relative Index 1.1 % (0-4) Total Protein 6.8 g/dL (6.4-8.2) Albumin 3.2 g/dL (3.4-5.0) L Albumin/Globulin Ratio 0.9 (1.0-1.7) L Salicylates Level < 2.8 mg/dL (2.8-20.0) L Salicylate Last Dose Date Unk Salicylate Last Dose Time Unk Urine Opiates Screen Pos (NEG) Urine Methadone Screen Neg (NEG) Acetaminophen Level < 2 mcg/ml (10-30) L Acetaminophen Last Dose Date Unk Acetaminophen Last Dose Time Unk Urine Barbiturates Neg (NEG) Urine Phencyclidine Screen Neg (NEG) Urine Amphetamine/Methamphetamine Pos (NEG) Urine Benzodiazepines Screen Neg (NEG) Urine Cocaine Screen Pos (NEG) Urine Cannabinoids Screen Neg (NEG) Ethyl Alcohol Level < 10 mg/dL (0-10) Urine Ethyl Alcohol Neg (NEG) POC Urine HCG, Qualitative Hcg positive (Negative) Laboratory Tests 04/27/20 20:20 Laboratory Tests 04/27/20 20:20 EKG EKG [] Radiology/Procedures Radiology/Procedures [] Course & Med Decision Making Course & Med Decision Making Pertinent Labs and Imaging studies reviewed. (See chart for details) 2-year-old female presenting in help with rehab or follow-up pain medical clearance and then psychiatric evaluation Dragon Disclaimer Dragon Disclaimer This electronic medical record was generated, in whole or in part, using a voice recognition dictation system. Departure Departure Impression: Primary Impression: Suicidal ideation Additional Impression: Substance abuse Disposition: 01 DC HOME SELF CARE/HOMELESS Condition: GOOD Referrals: NO PCP (PCP) Problem Qualifiers ALFIE REED MD Apr 28, 2020 01:52
== END 2020-04-28 01:35 | disposition home or self-care (01) ==
LOC: ER 19:55
DX: R45.851 Suicidal ideations (principal); F19.10 Other psychoactive substance abuse, uncomplicated; F32.9 Major depressive disorder, single episode, unspecified; F17.200 Nicotine dependence, unspecified, uncomplicated; Z86.14 Personal history of Methicillin resistant Staphylococcus aureus infection
CPT/HCPCS: 36415; 80053; 80307; 80329; 81001; 81025; 82553; 83735; 85025; 93005; 99284; G0480; 99285-25